=== PATIENT | female | born 1980 | race African-American/Black ===

== ENCOUNTER 2018-06-11 21:50 | Emergency (ER) | payer MEDICAID ==
[~2018-06-11] VITALS: Ht 165.1 cm; Wt 68.0 kg
[~2018-06-11 21:50] MED LIST: CEPACOL; DEPO INJECTION
[2018-06-12 03:34] LABS: CHLORIDE 108 mEq/L (98-107)
[2018-06-12 03:53] LABS: BASOPHILS % 0.5 % (0.0-2.0); EOSINOPHILS % 0.6 % (0.0-5.0); HEMATOCRIT. 27.2 % (36.0-48.0); HEMOGLOBIN. 8.2 g/dL (12.0-16.0); LYMPHOCYTES % 31.6 % (20.0-50.0); MEAN CORPUSCULAR VOLUME 63.3 fL (81.0-99.0); MEAN PLATELET VOLUME 6.6 fl (7.4-10.4); MONOCYTES % 13.5 % (2.0-8.0); NEUTROPHILS % 53.8 % (40.0-76.0); PLATELET 416 x1000/uL (130-400); RED CELL DISTRIBUTION WIDTH 19.9 % (11.6-14.6)
[2018-06-12 04:57] LABS: PLATELET ESTIMATE SLIGHTLY INCREASED
[2018-06-12] MEDS ORDERED: KETOROLAC 60MG/2ML VIAL IM ONE (05:00)
[2018-06-12 05:26] VITALS: BP 139/82
== END 2018-06-12 05:00 | disposition home or self-care (01) ==
LOC: ER 21:50
DX: R07.81 Pleurodynia (principal); D64.9 Anemia, unspecified; G43.909 Migraine, unspecified, not intractable, without status migrainosus
CPT/HCPCS: 36415; 71045; 80053; 84484; 85025; 93005; 96372; 99284; J1885; Z7610

== ENCOUNTER 2019-06-01 10:53 | Emergency (ER) | payer SELFPAY ==
[~2019-06-01] VITALS: Ht 165.1 cm; Wt 63.6 kg
[2019-06-01] MEDS ORDERED: BENZONATATE 100MG CAPSULE PO ONE (11:45)
[2019-06-01] MEDS ORDERED: ACETAMINOPHEN 325MG TABLET PO ONE (11:45)
[2019-06-01 13:36] VITALS: BP 136/85
== END 2019-06-01 13:37 | disposition home or self-care (01) ==
LOC: ER 10:53
DX: B34.9 Viral infection, unspecified (principal); G43.909 Migraine, unspecified, not intractable, without status migrainosus
CPT/HCPCS: 71045; 87804; 99284